=== PATIENT | male | born 1950 | race Caucasian/White ===

== ENCOUNTER 2018-02-03 08:47 | Inpatient (IN) | payer MEDICARE, OTHER ==
[2018-02-03 09:57] LABS: ADD MAN DIFF? NO
[2018-02-03 10:00] LABS: BASOPHILS % 0.4 % (0.0-2.0); EOSINOPHILS # 0.5 10^3/ul (0.0-0.5); EOSINOPHILS % 4.2 % (0.0-7.0); HEMATOCRIT 40.3 % (42.0-52.0); HEMOGLOBIN 13.2 g/dl (14.0-18.0); MEAN CORPUSCULAR HEMOGLOBIN 28.9 pg (29.0-33.0); MEAN CORPUSCULAR HGB CONC 32.8 g/dl (32.0-37.0); MEAN CORPUSCULAR VOLUME 88.2 fl (82.0-101.0); MEAN PLATELET VOLUME 10.4 fl (7.4-10.4); MONOCYTE # 0.6 10^3/ul (0.3-0.9); MONOCYTES % 5.4 % (0.0-11.0); NEUTROPHIL # 6.9 10^3/ul (1.6-7.5); NEUTROPHILS % 62.6 % (39.0-77.0); PLATELET COUNT 252 10^3/UL (140-415); RED BLOOD COUNT 4.57 10^6/ul (4.70-6.10); RED CELL DISTRIBUTION WIDTH 12.8 % (11.5-14.5)
[2018-02-03 10:14] LABS: UR CLARITY BLOODY (CLEAR); UR COLOR RED (YELLOW)
[2018-02-03 10:17] LABS: ADD UMIC YES; UR ASCORBIC ACID NEGATIVE (NEGATIVE); UR BACTERIA FEW /HPF (NONE SEEN); UR BILIRUBIN (Dip) NEGATIVE (NEGATIVE); UR BLOOD (Dip) 3+ mg/dL (NEGATIVE); UR GLUCOSE (Dip) NEGATIVE (NEGATIVE); UR KETONES (Dip) NEGATIVE (NEGATIVE); UR LEUKOCYTE ESTERASE (Dip) 1+ Leu/ul (NEGATIVE); UR NITRITE (Dip) NEGATIVE (NEGATIVE); UR RBC > 182 /HPF (0-5); UR SPECIFIC GRAVITY (Dip) 1.009 (1.003-1.030); UR TOTAL PROTEIN (Dip) 2+ mg/dl (NEGATIVE); UR UROBILINOGEN (Dip) NEGATIVE (NEGATIVE); UR WBC 158 /HPF (0-5)
[2018-02-03 10:38] LABS: ALANINE AMINOTRANSFERASE 63 IU/L (13-69); ALBUMIN 4.4 g/dl (3.3-4.9); ALBUMIN/GLOBULIN RATIO 1.29; ALKALINE PHOSPHATASE 80 IU/L (42-121); ANION GAP 20 (8-16); ASPARTATE AMINO TRANSFERASE 42 IU/L (15-46); BILIRUBIN,INDIRECT 0.2 mg/dl (0-1.1); BILIRUBIN,TOTAL 0.2 mg/dl (0.2-1.3); BLOOD UREA NITROGEN 9 mg/dl (7-20); CALCIUM 8.8 mg/dl (8.4-10.2); CARBON DIOXIDE 28 mmol/L (21-31); CHLORIDE 103 mmol/L (97-110); CREATININE 0.64 mg/dl (0.61-1.24); GLUCOSE 88 mg/dl (70-220); LIPASE 104 U/L (23-300); POTASSIUM 4.4 mmol/L (3.5-5.1); SODIUM 147 mmol/L (135-144); TOTAL PROTEIN 7.8 g/dl (6.1-8.1)
[2018-02-03] MEDS: CEFTRIAXONE 1 GM/50 ML (PMX) 50 ML IVPB (11:37)
[2018-02-03] MEDS ORDERED: ACETAMINOPHEN 325 MG TAB PO ×2 (12:00→15:00)
[2018-02-03] MEDS ORDERED: ONDANSETRON 4 MG INJ IV ×2 (12:00→15:00)
[2018-02-03 14:59] LABS: INR 1.07; PT RATIO 1.1
[2018-02-03 15:00] LABS: PARTIAL THROMBOPLASTIN TIME 32.2 Sec (25.0-35.0)
[2018-02-03] MEDS ORDERED: DOCUSATE SODIUM 100 MG CAP PO (15:00)
[2018-02-03] MEDS ORDERED: GLUCAGON 1 MG INJ IM (15:00)
[2018-02-03] MEDS ORDERED: ACETAMINOPHEN 650 MG SUPP PR (15:00)
[2018-02-03] MEDS ORDERED: NACL 0.9% 3 ML SYG IV (15:00)
[2018-02-03] MEDS ORDERED: HYDROCODONE/APAP (5/325) TAB PO (15:00)
[2018-02-03] MEDS ORDERED: GLUCOSE GEL 15 GRAM TUBE PO ×2 (15:00)
[2018-02-03] MEDS: SOD CHLORIDE 0.9% 1,000 ML IV (15:00)
[2018-02-03] MEDS ORDERED: GLUCOSE GEL 15 GRAM TUBE BUCCAL (15:00)
[2018-02-03] MEDS ORDERED: DEXTROSE 50% 50 ML SYRINGE IV ×2 (15:00)
[2018-02-03] MEDS: metFORMIN 500 MG TAB PO (17:40)
[2018-02-03] MEDS: ALBUTEROL HFA 8 GM INHALER INH ×2 (17:40→20:00)
[2018-02-03] MEDS: INSULIN ASPART [NOVOLOG] 3 ML PEN SC ×2 (17:41→21:00)
[2018-02-03] MEDS: ATORVASTATIN 10 MG TAB PO (20:17)
[2018-02-03] MEDS: DOCUSATE SODIUM 100 MG CAP PO (20:18)
[2018-02-03] MEDS: SALMETEROL/FLUTICASONE 250/50 INHA INH (20:18)
[2018-02-03] MEDS: INSULIN GLARGINE [LANtus] 3 ML PEN SC (20:22)
[2018-02-03] MEDS: TAMSULOSIN (SR) 0.4 MG CAP PO (20:46)
[2018-02-03] MEDS ORDERED: NON-FORMULARY/PATIENT OWN MED (Pravastatin Sodium 20 MG) PO (21:00)
[2018-02-03] MEDS ORDERED: NON-FORMULARY/PATIENT OWN MED (Budesonide-Formoterol Fumarate* (Symbicort*) 1 PUFF) PO (21:00)
[2018-02-03] MEDS: CEFTRIAXONE 2 GM/50 ML (PMX) 50 ML IVPB (23:18)
[2018-02-04] MEDS: ALBUTEROL HFA 8 GM INHALER INH ×2 (01:47→20:06)
[2018-02-04] MEDS: ACCUCHECK AT 2AM (Patients on SS coverage) XX (02:00)
[2018-02-04] MEDS: ACCU-CHEK XX (02:00)
[2018-02-04] MEDS: SOD CHLORIDE 0.9% 1,000 ML IV ×2 (03:02→16:07)
[2018-02-04 05:49] LABS: ALANINE AMINOTRANSFERASE 55 IU/L (13-69); ALBUMIN 4.3 g/dl (3.3-4.9); ALBUMIN/GLOBULIN RATIO 1.43; ALKALINE PHOSPHATASE 63 IU/L (42-121); ANION GAP 18 (8-16); ASPARTATE AMINO TRANSFERASE 38 IU/L (15-46); BLOOD UREA NITROGEN 9 mg/dl (7-20); CALCIUM 8.9 mg/dl (8.4-10.2); CARBON DIOXIDE 30 mmol/L (21-31); CHLORIDE 105 mmol/L (97-110); CHOL/HDL RATIO 3.1 RATIO; CHOLESTEROL 101 mg/dl (100-200); CREATININE 0.68 mg/dl (0.61-1.24); GLUCOSE 89 mg/dl (70-220); HDL CHOLESTEROL 32 mg/dl (30-78); LDL CHOLESTEROL,CALCULATED 47 mg/dl; MAGNESIUM 1.9 mg/dl (1.7-2.5); POTASSIUM 4.3 mmol/L (3.5-5.1); SODIUM 149 mmol/L (135-144); TOTAL PROTEIN 7.3 g/dl (6.1-8.1); TRIGLYCERIDES 108 mg/dl (0-149)
[2018-02-04 06:00] LABS: FREE THYROXINE INDEX (Calc) 2.13 ug/ml (0.65-3.89); T3 UPTAKE 32.8 % (23.5-40.5); T4 (THYROXINE) 6.5 ug/dl (5.5-11.0)
[2018-02-04] MEDS: PANTOPRAZOLE 40 MG INJ IV (06:04)
[2018-02-04 06:53] LABS: HEMOGLOBIN A1C 8.5 % (0-5.9)
[2018-02-04] MEDS: INSULIN ASPART [NOVOLOG] 3 ML PEN SC ×4 (08:00→21:00)
[2018-02-04] MEDS: metFORMIN 500 MG TAB PO ×2 (08:32→17:01)
[2018-02-04] MEDS: CYANOCOBALAMIN 500 MCG TAB PO (08:32)
[2018-02-04] MEDS: BENAZEPRIL 20 MG TAB PO (08:32)
[2018-02-04] MEDS: DOCUSATE SODIUM 100 MG CAP PO ×2 (08:32→21:20)
[2018-02-04] MEDS: ASPIRIN 81 MG TAB PO (08:33)
[2018-02-04] MEDS: SALMETEROL/FLUTICASONE 250/50 INHA INH ×2 (08:33→21:21)
[2018-02-04] MEDS ORDERED: TAMSULOSIN (SR) 0.4 MG CAP PO (09:00)
[2018-02-04] MEDS: hydrALAzine 20 MG INJ IV ×2 (16:06→20:12)
[2018-02-04] MEDS: INSULIN GLARGINE [LANtus] 3 ML PEN SC (20:10)
[2018-02-04] MEDS: TAMSULOSIN (SR) 0.4 MG CAP PO (21:20)
[2018-02-04] MEDS: ATORVASTATIN 10 MG TAB PO (21:20)
[2018-02-04] MEDS: HYDROCODONE/APAP (5/325) TAB PO (21:20)
[2018-02-04] MEDS: morphine 2 MG INJ IV (23:00)
[2018-02-04] MEDS: CEFTRIAXONE 2 GM/50 ML (PMX) 50 ML IVPB (23:00)
[2018-02-04] MEDS: MAGNESIUM HYDROXIDE 30ML CUP PO (23:01)
[2018-02-05] MEDS: ACCU-CHEK XX (02:00)
[2018-02-05] MEDS: ACCUCHECK AT 2AM (Patients on SS coverage) XX (02:00)
[2018-02-05] MEDS: ALBUTEROL HFA 8 GM INHALER INH ×3 (02:32→21:47)
[2018-02-05] MEDS: morphine 2 MG INJ IV (02:33)
[2018-02-05] MEDS: SOD CHLORIDE 0.9% 1,000 ML IV ×2 (04:15→05:49)
[2018-02-05] MEDS: PANTOPRAZOLE 40 MG INJ IV (06:05)
[2018-02-05] MEDS: INSULIN ASPART [NOVOLOG] 3 ML PEN SC ×4 (08:00→20:55)
[2018-02-05] MEDS: CYANOCOBALAMIN 500 MCG TAB PO (08:12)
[2018-02-05] MEDS: ASPIRIN 81 MG TAB PO (08:12)
[2018-02-05] MEDS: metFORMIN 500 MG TAB PO ×2 (08:13→17:56)
[2018-02-05] MEDS: BENAZEPRIL 20 MG TAB PO (08:14)
[2018-02-05] MEDS: SALMETEROL/FLUTICASONE 250/50 INHA INH ×2 (08:14→20:55)
[2018-02-05] MEDS: DOCUSATE SODIUM 100 MG CAP PO (08:27)
[2018-02-05] MEDS: MAGNESIUM HYDROXIDE 30ML CUP PO (11:11)
[2018-02-05] MEDS: BISACODYL 10 MG SUPP PR (14:00)
[2018-02-05] MEDS: MAGNESIUM CITRATE 300 ML BTL PO (15:44)
[2018-02-05] MEDS: LEVOFLOXACIN 500MG/D5W (PMX) 100 ML IVPB (15:44)
[2018-02-05 16:29] LABS: ADD MAN DIFF? NO
[2018-02-05 16:32] LABS: BASOPHILS % 0.3 % (0.0-2.0); EOSINOPHILS # 0.4 10^3/ul (0.0-0.5); EOSINOPHILS % 3.1 % (0.0-7.0); HEMATOCRIT 41.6 % (42.0-52.0); HEMOGLOBIN 13.6 g/dl (14.0-18.0); LYMPHOCYTES # 2.1 10^3/ul (0.8-2.9); LYMPHOCYTES % 18.5 % (15.0-51.0); MEAN CORPUSCULAR HEMOGLOBIN 29.1 pg (29.0-33.0); MEAN CORPUSCULAR HGB CONC 32.7 g/dl (32.0-37.0); MEAN CORPUSCULAR VOLUME 88.9 fl (82.0-101.0); MEAN PLATELET VOLUME 10.5 fl (7.4-10.4); MONOCYTE # 0.7 10^3/ul (0.3-0.9); MONOCYTES % 6.1 % (0.0-11.0); NEUTROPHIL # 8.3 10^3/ul (1.6-7.5); NEUTROPHILS % 71.6 % (39.0-77.0); PLATELET COUNT 266 10^3/UL (140-415); RED BLOOD COUNT 4.68 10^6/ul (4.70-6.10); RED CELL DISTRIBUTION WIDTH 13.2 % (11.5-14.5)
[2018-02-05 16:32] LABS: WHITE BLOOD COUNT 11.6 10^3/ul (4.8-10.8)
[2018-02-05] MEDS: MINERAL OIL 133 ML ENEMA PR (16:42)
[2018-02-05 17:00] LABS: MAGNESIUM 2.3 mg/dl (1.7-2.5)
[2018-02-05] MEDS: TAMSULOSIN 0.4 MG PO (17:00)
[2018-02-05 17:02] LABS: ANION GAP 22 (8-16); BLOOD UREA NITROGEN 13 mg/dl (7-20); CALCIUM 9.9 mg/dl (8.4-10.2); CARBON DIOXIDE 28 mmol/L (21-31); CHLORIDE 102 mmol/L (97-110); CREATININE 0.79 mg/dl (0.61-1.24); GLUCOSE 142 mg/dl (70-220); SODIUM 147 mmol/L (135-144)
[2018-02-05 17:12] LABS: POTASSIUM 5.3 mmol/L (3.5-5.1)
[2018-02-05] MEDS: INSULIN GLARGINE [LANtus] 3 ML PEN SC (20:00)
[2018-02-05] MEDS: ATORVASTATIN 10 MG TAB PO (20:55)
[2018-02-06] MEDS: ACCU-CHEK XX (02:00)
[2018-02-06] MEDS: ACCUCHECK AT 2AM (Patients on SS coverage) XX (02:00)
[2018-02-06] MEDS: ALBUTEROL HFA 8 GM INHALER INH ×4 (02:10→20:54)
[2018-02-06] MEDS: SOD CHLORIDE 0.9% 1,000 ML IV ×2 (02:10→17:45)
[2018-02-06 05:48] LABS: ADD MAN DIFF? NO
[2018-02-06 05:56] LABS: WHITE BLOOD COUNT 11.4 10^3/ul (4.8-10.8)
[2018-02-06 05:56] LABS: BASOPHILS % 0.3 % (0.0-2.0); EOSINOPHILS # 0.4 10^3/ul (0.0-0.5); EOSINOPHILS % 3.7 % (0.0-7.0); HEMOGLOBIN 13.3 g/dl (14.0-18.0); LYMPHOCYTES # 2.7 10^3/ul (0.8-2.9); LYMPHOCYTES % 23.4 % (15.0-51.0); MEAN CORPUSCULAR HEMOGLOBIN 29.4 pg (29.0-33.0); MEAN CORPUSCULAR HGB CONC 33.3 g/dl (32.0-37.0); MEAN CORPUSCULAR VOLUME 88.5 fl (82.0-101.0); MEAN PLATELET VOLUME 10.5 fl (7.4-10.4); MONOCYTE # 0.8 10^3/ul (0.3-0.9); MONOCYTES % 6.8 % (0.0-11.0); NEUTROPHIL # 7.5 10^3/ul (1.6-7.5); NEUTROPHILS % 65.5 % (39.0-77.0); PLATELET COUNT 255 10^3/UL (140-415); RED BLOOD COUNT 4.52 10^6/ul (4.70-6.10); RED CELL DISTRIBUTION WIDTH 13.1 % (11.5-14.5)
[2018-02-06] MEDS: PANTOPRAZOLE 40 MG INJ IV (06:23)
[2018-02-06 06:32] LABS: ANION GAP 20 (8-16); BLOOD UREA NITROGEN 13 mg/dl (7-20); CALCIUM 9.2 mg/dl (8.4-10.2); CARBON DIOXIDE 27 mmol/L (21-31); CHLORIDE 107 mmol/L (97-110); GLUCOSE 143 mg/dl (70-220); POTASSIUM 4.5 mmol/L (3.5-5.1); SODIUM 149 mmol/L (135-144)
[2018-02-06] MEDS: INSULIN ASPART [NOVOLOG] 3 ML PEN SC ×4 (08:00→21:00)
[2018-02-06] MEDS: metFORMIN 500 MG TAB PO ×2 (08:00→18:05)
[2018-02-06] MEDS: DOCUSATE SODIUM 100 MG CAP PO (08:53)
[2018-02-06] MEDS: ASPIRIN 81 MG TAB PO (08:54)
[2018-02-06] MEDS: CYANOCOBALAMIN 500 MCG TAB PO (08:54)
[2018-02-06] MEDS: TAMSULOSIN 0.4 MG PO (08:54)
[2018-02-06] MEDS: BENAZEPRIL 20 MG TAB PO (08:54)
[2018-02-06] MEDS: morphine 2 MG INJ IV (08:55)
[2018-02-06] MEDS ORDERED: PATIENT'S OWN MEDICATION PO (09:00)
[2018-02-06] MEDS: SALMETEROL/FLUTICASONE 250/50 INHA INH ×2 (09:01→20:53)
[2018-02-06] MEDS: hydrALAzine 20 MG INJ IV (12:04)
[2018-02-06] MEDS: LEVOFLOXACIN 500MG/D5W (PMX) 100 ML IVPB (15:37)
[2018-02-06] MEDS ORDERED: MIDAZOLAM 1 MG/ML 2 ML INJ (17:35)
[2018-02-06] MEDS ORDERED: ETOMIDATE 20 MG INJ (18:20)
[2018-02-06] MEDS ORDERED: LIDOCAINE 100 MG SYRINGE (18:20)
[2018-02-06] MEDS ORDERED: ONDANSETRON 4 MG INJ (18:21)
[2018-02-06] MEDS ORDERED: PROPOFOL 20 ML (18:29)
[2018-02-06] MEDS ORDERED: LABETALOL HCL 20MG INJ IV (19:00)
[2018-02-06] MEDS ORDERED: MEPERIDINE 25 MG INJ IV (19:00)
[2018-02-06] MEDS ORDERED: HYDROmorphONE (0.2 MG/ML) 10ML SYG IV ×2 (19:00)
[2018-02-06] MEDS ORDERED: FENTAnyl 50 MCG/ML VIAL IV (19:00)
[2018-02-06] MEDS ORDERED: hydrALAzine 20 MG INJ IV (19:00)
[2018-02-06] MEDS ORDERED: ONDANSETRON 4 MG INJ IV (19:00)
[2018-02-06] MEDS ORDERED: DIPHENHYDRAMINE 50 MG INJ IV (19:00)
[2018-02-06] MEDS: LACTOBACILLUS RHAMNOSUS CAP PO (20:54)
[2018-02-06] MEDS: ATORVASTATIN 10 MG TAB PO (20:54)
[2018-02-06] MEDS: METOPROLOL 25 MG TAB PO (20:56)
[2018-02-06] MEDS: INSULIN GLARGINE [LANtus] 3 ML PEN SC (21:04)
[2018-02-07] MEDS: ACCU-CHEK XX (02:00)
[2018-02-07] MEDS: ALBUTEROL HFA 8 GM INHALER INH ×3 (02:00→13:41)
[2018-02-07] MEDS: ACCUCHECK AT 2AM (Patients on SS coverage) XX (02:00)
[2018-02-07] MEDS: morphine 2 MG INJ IV (03:38)
[2018-02-07 05:53] LABS: ADD MAN DIFF? NO
[2018-02-07 05:58] LABS: WHITE BLOOD COUNT 10.7 10^3/ul (4.8-10.8)
[2018-02-07 05:58] LABS: BASOPHILS % 0.4 % (0.0-2.0); EOSINOPHILS # 0.6 10^3/ul (0.0-0.5); EOSINOPHILS % 5.1 % (0.0-7.0); HEMATOCRIT 38.2 % (42.0-52.0); HEMOGLOBIN 12.1 g/dl (14.0-18.0); LYMPHOCYTES # 2.4 10^3/ul (0.8-2.9); LYMPHOCYTES % 22.7 % (15.0-51.0); MEAN CORPUSCULAR HEMOGLOBIN 28.9 pg (29.0-33.0); MEAN CORPUSCULAR HGB CONC 31.7 g/dl (32.0-37.0); MEAN CORPUSCULAR VOLUME 91.2 fl (82.0-101.0); MEAN PLATELET VOLUME 10.6 fl (7.4-10.4); MONOCYTE # 0.7 10^3/ul (0.3-0.9); MONOCYTES % 6.9 % (0.0-11.0); NEUTROPHIL # 6.9 10^3/ul (1.6-7.5); NEUTROPHILS % 64.5 % (39.0-77.0); PLATELET COUNT 247 10^3/UL (140-415); RED BLOOD COUNT 4.19 10^6/ul (4.70-6.10); RED CELL DISTRIBUTION WIDTH 13.1 % (11.5-14.5)
[2018-02-07] MEDS: PANTOPRAZOLE 40 MG INJ IV (06:02)
[2018-02-07] MEDS: SOD CHLORIDE 0.9% 1,000 ML IV (06:03)
[2018-02-07 06:32] LABS: ANION GAP 18 (8-16); BLOOD UREA NITROGEN 14 mg/dl (7-20); CALCIUM 8.6 mg/dl (8.4-10.2); CARBON DIOXIDE 27 mmol/L (21-31); CHLORIDE 105 mmol/L (97-110); CREATININE 0.82 mg/dl (0.61-1.24); GLUCOSE 109 mg/dl (70-220); POTASSIUM 4.4 mmol/L (3.5-5.1); SODIUM 146 mmol/L (135-144)
[2018-02-07] MEDS: INSULIN ASPART [NOVOLOG] 3 ML PEN SC ×2 (07:59→12:00)
[2018-02-07] MEDS: LACTOBACILLUS RHAMNOSUS CAP PO (08:59)
[2018-02-07] MEDS: CYANOCOBALAMIN 500 MCG TAB PO (08:59)
[2018-02-07] MEDS: DOCUSATE SODIUM 100 MG CAP PO (09:00)
[2018-02-07] MEDS: BENAZEPRIL 20 MG TAB PO (09:00)
[2018-02-07] MEDS: METOPROLOL 25 MG TAB PO (09:00)
[2018-02-07] MEDS: ASPIRIN 81 MG TAB PO (09:00)
[2018-02-07] MEDS: SALMETEROL/FLUTICASONE 250/50 INHA INH (09:01)
[2018-02-07] MEDS: TAMSULOSIN 0.4 MG PO (09:02)
[2018-02-07] MEDS: metFORMIN 500 MG TAB PO (09:16)
== END 2018-02-07 15:47 | disposition home or self-care (01) | DRG 694 ==
LOC: PP2 02-06 11:34 → E/R 08:47 → PP2 11:59
PROC: 0TCB8ZZ Extirpation of Matter from Bladder, Via Natural or Artificial Opening Endoscopic (ICD-10-PCS; principal; 2018-02-06 17:30)
DX: N21.0 Calculus in bladder (principal); E11.65 Type 2 diabetes mellitus with hyperglycemia; I10 Essential (primary) hypertension; N39.0 Urinary tract infection, site not specified; N13.8 Other obstructive and reflux uropathy; B96.20 Unspecified Escherichia coli [E. coli] as the cause of diseases classified elsewhere; R31.0 Gross hematuria; N40.1 Benign prostatic hyperplasia with lower urinary tract symptoms; E78.5 Hyperlipidemia, unspecified; K80.20 Calculus of gallbladder without cholecystitis without obstruction; K59.00 Constipation, unspecified; Z79.4 Long term (current) use of insulin; Z87.891 Personal history of nicotine dependence
CPT/HCPCS: 36415; 74176; 80048; 80053; 80061; 81001; 82962; 83036; 83690; 83735; 84100; 84153; 84154; 84436; 84443; 84479; 85025; 85610; 85730; 87086; 88300; 96374; 99217; 99285-25; G0378

== ENCOUNTER 2018-02-08 02:24 | Emergency (ER) | payer MEDICARE, OTHER ==
[2018-02-08] MEDS ORDERED: ONDANSETRON 4 MG INJ (03:31)
[2018-02-08] MEDS: morphine 10 MG INJ IV (03:38)
== END 2018-02-08 04:53 | disposition home or self-care (01) ==
LOC: E/R 02:24
DX: G89.18 Other acute postprocedural pain (principal); R31.0 Gross hematuria; N99.89 Other postprocedural complications and disorders of genitourinary system; J45.909 Unspecified asthma, uncomplicated; I10 Essential (primary) hypertension; E11.9 Type 2 diabetes mellitus without complications; Z79.4 Long term (current) use of insulin; Z79.82 Long term (current) use of aspirin
CPT/HCPCS: 51702; 96374; 99284-25

== ENCOUNTER 2018-02-08 22:36 | Emergency (ER) | payer MEDICARE, OTHER ==
[2018-02-08] MEDS: BISACODYL 10 MG SUPP PR (23:35)
[2018-02-08] MEDS: NA PHOSPHATE/BIPHOS 133 ML ENEMA PR (23:35)
[2018-02-08 23:59] LABS: ADD MAN DIFF? NO
[2018-02-09 00:01] LABS: WHITE BLOOD COUNT 12.4 10^3/ul (4.8-10.8)
[2018-02-09 00:01] LABS: BASOPHILS % 0.2 % (0.0-2.0); EOSINOPHILS # 0.4 10^3/ul (0.0-0.5); EOSINOPHILS % 3.1 % (0.0-7.0); HEMATOCRIT 36.2 % (42.0-52.0); HEMOGLOBIN 11.9 g/dl (14.0-18.0); LYMPHOCYTES # 2.1 10^3/ul (0.8-2.9); LYMPHOCYTES % 17.3 % (15.0-51.0); MEAN CORPUSCULAR HEMOGLOBIN 29.2 pg (29.0-33.0); MEAN CORPUSCULAR HGB CONC 32.9 g/dl (32.0-37.0); MEAN CORPUSCULAR VOLUME 88.7 fl (82.0-101.0); MEAN PLATELET VOLUME 10.5 fl (7.4-10.4); MONOCYTE # 0.8 10^3/ul (0.3-0.9); MONOCYTES % 6.5 % (0.0-11.0); NEUTROPHILS % 72.3 % (39.0-77.0); PLATELET COUNT 238 10^3/UL (140-415); RED BLOOD COUNT 4.08 10^6/ul (4.70-6.10); RED CELL DISTRIBUTION WIDTH 12.7 % (11.5-14.5)
[2018-02-09 00:26] LABS: ALANINE AMINOTRANSFERASE 55 IU/L (13-69); ALBUMIN 4.7 g/dl (3.3-4.9); ALBUMIN/GLOBULIN RATIO 1.46; ALKALINE PHOSPHATASE 71 IU/L (42-121); ANION GAP 22 (8-16); ASPARTATE AMINO TRANSFERASE 47 IU/L (15-46); BILIRUBIN,INDIRECT 0.1 mg/dl (0-1.1); BILIRUBIN,TOTAL 0.1 mg/dl (0.2-1.3); BLOOD UREA NITROGEN 20 mg/dl (7-20); CALCIUM 8.8 mg/dl (8.4-10.2); CARBON DIOXIDE 26 mmol/L (21-31); CHLORIDE 102 mmol/L (97-110); CREATININE 0.87 mg/dl (0.61-1.24); GLUCOSE 124 mg/dl (70-220); LIPASE 65 U/L (23-300); POTASSIUM 4.8 mmol/L (3.5-5.1); SODIUM 145 mmol/L (135-144); TOTAL PROTEIN 7.9 g/dl (6.1-8.1)
[2018-02-09] MEDS: PEG/ELECTROLYTES 4L BTL PO (01:26)
== END 2018-02-09 01:33 | disposition home or self-care (01) ==
LOC: E/R 22:36
DX: K59.00 Constipation, unspecified (principal); D64.9 Anemia, unspecified; I10 Essential (primary) hypertension; J45.909 Unspecified asthma, uncomplicated; E11.9 Type 2 diabetes mellitus without complications; Z79.4 Long term (current) use of insulin; Z79.82 Long term (current) use of aspirin
CPT/HCPCS: 36415; 80053; 83690; 85025; 99283

== ENCOUNTER 2018-03-21 09:24 | Day surgery (SDC) | payer MEDICARE, OTHER ==
[~2018-03-21 09:24] MED LIST: SUCCINYLCHOLINE CHLORIDE 100 MG/5 ML SYG IV
[2018-03-21] MEDS ORDERED: ACETAMINOPHEN 1000MG/100ML IV 100 ML (11:31)
[2018-03-21] MEDS ORDERED: FENTAnyl 50 MCG/ML VIAL (11:54)
[2018-03-21] MEDS ORDERED: GLYCOPYRROLATE 0.4 MG INJ (11:54)
[2018-03-21] MEDS ORDERED: PROPOFOL 20 ML ×2 (11:54→14:34)
[2018-03-21] MEDS ORDERED: DEXAMETHASONE 4 MG/ML 1 ML INJ (11:54)
[2018-03-21] MEDS ORDERED: ONDANSETRON 4 MG INJ (11:54)
[2018-03-21] MEDS ORDERED: NEOSTIGMINE 3 MG/3 ML SYRINGE (11:54)
[2018-03-21] MEDS ORDERED: CEFAZOLIN 1 GM INJ (11:54)
[2018-03-21] MEDS ORDERED: ROCURONIUM 50 MG INJ ×2 (11:54→12:59)
[2018-03-21] MEDS ORDERED: MIDAZOLAM 1 MG/ML 2 ML INJ (11:54)
[2018-03-21] MEDS ORDERED: EPHEDrine SULFATE 50 MG/5 ML SYG (13:02)
[2018-03-21] MEDS ORDERED: SUGAMMADEX SODIUM 200 MG/2 ML VIAL IV ×2 (14:10→14:54)
[2018-03-21] MEDS: DEXTROSE 5%-0.45% NACL 1,000 ML IV (14:57)
[2018-03-21] MEDS ORDERED: FENTAnyl 50 MCG/ML VIAL IV ×2 (15:30)
[2018-03-21] MEDS ORDERED: METOCLOPRAMIDE 10 MG INJ IV (15:30)
[2018-03-21] MEDS ORDERED: ALBUTEROL 0.083% (NEB) 2.5 MG/3 ML AMP HHN (15:30)
[2018-03-21] MEDS ORDERED: ONDANSETRON 4 MG INJ IV (15:30)
[2018-03-21] MEDS ORDERED: hydrALAzine 20 MG INJ IV (15:30)
[2018-03-21] MEDS ORDERED: LABETALOL HCL 20MG INJ IV (15:30)
[2018-03-21] MEDS ORDERED: MEPERIDINE 25 MG INJ IV (15:30)
[2018-03-21] MEDS ORDERED: DIPHENHYDRAMINE 50 MG INJ IV (15:30)
[2018-03-21] MEDS ORDERED: HYDROmorphONE (0.2 MG/ML) 10ML SYG IV ×3 (15:30)
[2018-03-21] MEDS: FENTAnyl 50 MCG/ML VIAL IV ×2 (16:06→16:35)
[2018-03-21] MEDS: INSULIN ASPART [NOVOLOG] 3 ML PEN SC ×2 (17:55→21:13)
[2018-03-21] MEDS ORDERED: DEXTROSE 50% 50 ML SYRINGE IV ×2 (18:00)
[2018-03-21] MEDS ORDERED: GLUCOSE GEL 15 GRAM TUBE BUCCAL (18:00)
[2018-03-21] MEDS ORDERED: GLUCOSE GEL 15 GRAM TUBE PO ×2 (18:00)
[2018-03-21] MEDS ORDERED: GLUCAGON 1 MG INJ IM (18:00)
[2018-03-21] MEDS: CIPROFLOXACIN 500 MG TAB PO (18:01)
[2018-03-21] MEDS: ATORVASTATIN 10 MG TAB PO (21:09)
[2018-03-21] MEDS: METOPROLOL 25 MG TAB PO (21:09)
[2018-03-21] MEDS: TAMSULOSIN (SR) 0.4 MG CAP PO (21:09)
[2018-03-21] MEDS: INSULIN GLARGINE [LANtus] 3 ML PEN SC (21:14)
[2018-03-21] MEDS: SOD CHLORIDE 0.9% 1,000 ML IV (22:25)
[2018-03-21] MEDS: ALBUTEROL HFA 8 GM INHALER INH (23:34)
[2018-03-22] MEDS: ZOLPIDEM 5 MG TAB PO (02:14)
[2018-03-22] MEDS: ACCU-CHEK XX (02:16)
[2018-03-22 05:01] LABS: ADD MAN DIFF? NO
[2018-03-22 05:05] LABS: BASOPHILS % 0.1 % (0.0-2.0); EOSINOPHILS % 0.1 % (0.0-7.0); HEMATOCRIT 36.4 % (42.0-52.0); HEMOGLOBIN 11.9 g/dl (14.0-18.0); LYMPHOCYTES # 1.7 10^3/ul (0.8-2.9); MEAN CORPUSCULAR HEMOGLOBIN 28.7 pg (29.0-33.0); MEAN CORPUSCULAR HGB CONC 32.7 g/dl (32.0-37.0); MEAN CORPUSCULAR VOLUME 87.9 fl (82.0-101.0); MEAN PLATELET VOLUME 10.5 fl (7.4-10.4); MONOCYTE # 0.6 10^3/ul (0.3-0.9); MONOCYTES % 4.7 % (0.0-11.0); NEUTROPHIL # 9.7 10^3/ul (1.6-7.5); NEUTROPHILS % 80.6 % (39.0-77.0); PLATELET COUNT 227 10^3/UL (140-415); RED BLOOD COUNT 4.14 10^6/ul (4.70-6.10); RED CELL DISTRIBUTION WIDTH 12.8 % (11.5-14.5)
[2018-03-22] MEDS: CIPROFLOXACIN 500 MG TAB PO (05:33)
[2018-03-22] MEDS ORDERED: MAGNESIUM HYDROXIDE 30ML CUP PO (08:30)
[2018-03-22] MEDS: ASPIRIN (EC) 81 MG TAB PO (08:32)
[2018-03-22] MEDS: BENAZEPRIL 40 MG TAB PO (08:34)
[2018-03-22] MEDS: METOPROLOL 25 MG TAB PO (08:35)
[2018-03-22] MEDS: INSULIN ASPART [NOVOLOG] 3 ML PEN SC (08:38)
[2018-03-22] MEDS: DOCUSATE SODIUM 100 MG CAP PO (08:53)
[2018-03-22] MEDS: MAGNESIUM HYDROXIDE 30ML CUP PO (08:54)
== END 2018-03-22 12:49 | disposition home or self-care (01) ==
LOC: SDS 09:24 → REC 16:50 → SDS 09:24 → REC 15:06 → MS1 15:16 → SDS 03-22 12:49
DX: N40.1 Benign prostatic hyperplasia with lower urinary tract symptoms (principal); E11.9 Type 2 diabetes mellitus without complications; J44.9 Chronic obstructive pulmonary disease, unspecified; E78.5 Hyperlipidemia, unspecified; Z87.891 Personal history of nicotine dependence
CPT/HCPCS: 52601; 82962; 85025; 88309